=== PATIENT | female | born 1990 | race Caucasian/White ===

== ENCOUNTER 2019-05-22 15:42 | Emergency (ER) | payer SELFPAY ==
[2019-05-22 16:24] VITALS: BP 118/70; PULSE 79; TEMP 97.5; BMI 22.8
--- NOTE | 2019-05-22 17:18 | PDOC ---
History of Present Illness - General Chief Complaint: Pain Stated Complaint: RT FT PAIN Time Seen by Provider: 05/22/19 16:52 - History of Present Illness Initial Comments: 05/22/19 17:14 29-year-old female with right foot pain no trauma x3 days no systemic symptoms Past History - Past Medical History Allergies/Adverse Reactions: Allergies Allergy/AdvReac Type Severity Reaction Status Date / Time No Known Allergies Allergy Verified 05/22/19 16:21 Home Medications: Ambulatory Orders Cephalexin [Keflex] 500 mg PO QID #40 capsule 05/22/19 Sulfamethoxazole/Trimethoprim [Bactrim Ds -] 1 tab PO BID #14 tablet 05/22/19 - Psycho Social/Smoking Cessation Hx Smoking History: Never smoked Information on smoking cessation initiated: No Hx Alcohol Use: No Drug/Substance Use Hx: No Review of Systems - Review of Systems Constitutional: No: Fever Musculoskeletal: Yes: Joint Pain *Physical Exam - Vital Signs Last Vital Signs Temp Pulse Resp BP Pulse Ox 97.5 F L 79 16 118/70 98 05/22/19 16:22 05/22/19 16:22 05/22/19 16:22 05/22/19 16:22 05/22/19 16:22 - Physical Exam 05/22/19 17:15 There is an area of erythema and warmth without induration sensitivity or fluctuance on the lateral aspect of the right foot just distal to the lateral malleolus on the dorsum of the foot. There is no tenderness about the knee proximal fibula or along its distal course. The thigh and calf are soft and nontender. There is full nonpainful range of motion of the ankle and toes there are no gross sensorimotor deficits. Medical Decision Making - Medical Decision Making 05/22/19 17:15 Differential diagnosis includes gout, septic arthritis, pseudogout, and cellulitis. I will presumptively treat this is cellulitis with Bactrim and Keflex and have the patient follow-up with orthopedic surgery. I do not believe this is a septic joint. I have reviewed the pathophysiology with the patient. They are in agreement with the treatment plan all questions were answered to their satisfaction. Understanding for follow-up without fail was also conveyed to the patient. Again they are in agreement. Discharge - Discharge Information Problems reviewed: Yes Clinical Impression/Diagnosis: Cellulitis of right foot Condition: Stable Disposition: HOME - Admission No - Follow up/Referral Referrals: Celso Hawkins DO [Staff Physician] - - Patient Discharge Instructions Additional Instructions: You are being treated for a foot infection. Please take the antibiotics and finish the entire course as directed and return to the emergency room should symptoms worsen. Without fail follow-up with orthopedic surgery in 2 to 3 days for further evaluation and treatment options. You may weight-bear as tolerated with crutches - Post Discharge Activity
== END 2019-05-22 17:27 | disposition home or self-care (01) ==
LOC: JERFT 15:42
DX: L03.115 Cellulitis of right lower limb (principal)
CPT/HCPCS: 99283-25